=== PATIENT | female | born 1940 | race Caucasian/White ===

== ENCOUNTER 2020-10-16 14:36 | Observation (INO) ==
[2020-10-16] MEDS ORDERED: 0.9 % Sodium Chloride 500 ML IVC ONE ×2 (15:03→16:59)
[2020-10-16 15:22] LABS: Basophils % 0.2 %; Eosinophils % 0.2 %; Hematocrit 34.4 % (35.3-44.9); Hemoglobin 11.3 g/dL (11.5-15.4); Immature Granulocytes % 0.4 % (0-4); Lymphocytes # 0.9 K/mcL (0.6-4.6); Lymphocytes % 6.3 %; Mean Corpuscular HGB Conc 32.8 g/dL (31.6-35.5); Mean Corpuscular Hemoglobin 29.6 pg (28.0-33.3); Mean Corpuscular Volume 90.1 fL (83.0-100.0); Mean Platelet Volume 10.8 fL (9.4-12.4); Monocytes % 7.4 %; Neutrophils # 11.9 K/mcL (1.6-8.9); Platelet Count 273 K/mcL (140-400); Red Blood Count 3.82 M/mcL (3.82-4.97); Red Cell Distribution Width 15.9 % (11.5-14.5); Segmented Neutrophils % 85.5 %; White Blood Count 13.9 K/mcL (4.3-11.1)
[2020-10-16 15:28] LABS: INR 1.9; Prothrombin Time 21.7 Seconds (9.4-12.1)
[2020-10-16 15:36] LABS: Albumin 3.8 g/dL (3.5-5.7); Albumin/Globulin Ratio 1.2 (1.1-2.2); Bilirubin,Direct 0.2 mg/dL (0.0-0.2); Bilirubin,Indirect 0.7 mg/dL (0.0-1.0); Bilirubin,Total 0.9 mg/dL (0.3-1.0); Calcium 8.8 mg/dL (8.6-10.3); Globulin 3.3 g/dL (2.4-3.5); Potassium 4.2 mEq/L (3.5-5.1); Total Protein 7.1 g/dL (6.4-8.9)
[2020-10-16 15:54] LABS: Bilirubin,Urine Small (Negative); Blood,Urine Large (Negative); Clarity,Urine Turbid (Clear); Color,Urine Yellow (Yellow); Glucose,Urine (UA) Normal (Normal); Ketones,Urine Negative (Negative); Leukocyte Esterase,Urine Large (Negative); Nitrite,Urine Negative (Negative); PH,Urine 5.5 pH Units (5.0-8.0); Protein,Urine 100 mg/dL (Neg-Trace); Specific Gravity,Urine 1.025 (1.010-1.025); Urobilinogen,Urine Normal (Normal)
[2020-10-16] MEDS ORDERED: cefTRIAXone 2,000 MG in 0.9 % Sodium Chloride Mini Bag 100 ML IVPB ONE (16:00)
[2020-10-16 16:02] LABS: RBC,Urine 50-100 per hpf (0-3); WBC,Urine TNTC per hpf (0-3)
[2020-10-16] MEDS: 0.9 % Sodium Chloride 1,000 ML IVC SCH (16:11)
[2020-10-16] MEDS ORDERED: Melatonin 3 MG TABLET PO PRN (16:45)
[2020-10-16] MEDS ORDERED: Acetaminophen 325 MG TABLET PO PRN (16:45)
[2020-10-16] MEDS ORDERED: Naloxone 0.4 MG/ML INJ IVP PRN (16:45)
[2020-10-16] MEDS ORDERED: Ondansetron 4 MG/2 ML VIAL IVP PRN (16:45)
[2020-10-16] MEDS ORDERED: Dextrose Gel 15 GM/37.5 ML TUBE PO PRN ×2 (16:50)
[2020-10-16] MEDS ORDERED: D5% in Water 1,000 ML IVC PRN (16:50)
[2020-10-16] MEDS ORDERED: *HR* Dextrose 50 % in Water (Vial) 50 ML VIAL IVP PRN (16:50)
[2020-10-16] MEDS: Apixaban 5 MG TABLET PO SCH (21:10)
[2020-10-16] MEDS: Insulin LISPRO 300 UNITS/3 ML VIAL SUBQ SCH (21:11)
[2020-10-16] MEDS: Gabapentin 400 MG CAPSULE PO SCH (21:11)
[2020-10-17] MEDS ORDERED: 0.9 % Sodium Chloride 500 ML IV PRN (00:07)
[2020-10-17] MEDS: 0.9 % Sodium Chloride 1,000 ML IVC SCH ×4 (01:37→17:42)
[2020-10-17 07:02] LABS: Basophils % 0.4 %; Eosinophils # 0.1 K/mcL (0.0-0.6); Eosinophils % 0.9 %; Hematocrit 29.6 % (35.3-44.9); Hemoglobin 9.2 g/dL (11.5-15.4); Immature Granulocytes % 0.4 % (0-4); Lymphocytes # 0.7 K/mcL (0.6-4.6); Lymphocytes % 8.2 %; Mean Corpuscular HGB Conc 31.1 g/dL (31.6-35.5); Mean Corpuscular Hemoglobin 29.1 pg (28.0-33.3); Mean Corpuscular Volume 93.7 fL (83.0-100.0); Mean Platelet Volume 10.8 fL (9.4-12.4); Monocytes # 0.8 K/mcL (0.0-1.3); Monocytes % 9.7 %; Neutrophils # 6.9 K/mcL (1.6-8.9); Platelet Count 214 K/mcL (140-400); Red Blood Count 3.16 M/mcL (3.82-4.97); Red Cell Distribution Width 15.9 % (11.5-14.5); Segmented Neutrophils % 80.4 %; White Blood Count 8.5 K/mcL (4.3-11.1)
[2020-10-17 07:24] LABS: Calcium 7.4 mg/dL (8.6-10.3); Potassium 3.5 mEq/L (3.5-5.1)
[2020-10-17] MEDS: Insulin LISPRO 300 UNITS/3 ML VIAL SUBQ SCH ×4 (07:41→21:19)
[2020-10-17] MEDS: Apixaban 5 MG TABLET PO SCH ×2 (10:14→21:18)
[2020-10-17] MEDS: Gabapentin 400 MG CAPSULE PO SCH ×3 (10:19→21:18)
[2020-10-17] MEDS: cefTRIAXone 2,000 MG in Water for inj. (sterile) 20 ML IVP SCH (17:29)
[2020-10-18] MEDS: 0.9 % Sodium Chloride 1,000 ML IVC SCH ×3 (01:04→15:45)
[2020-10-18 07:02] LABS: Calcium 7.3 mg/dL (8.6-10.3); Potassium 3.8 mEq/L (3.5-5.1)
[2020-10-18 07:41] LABS: Hematocrit 33.7 % (35.3-44.9); Hemoglobin 9.9 g/dL (11.5-15.4); Mean Corpuscular HGB Conc 29.4 g/dL (31.6-35.5); Mean Corpuscular Hemoglobin 29.3 pg (28.0-33.3); Mean Platelet Volume 10.4 fL (9.4-12.4); Platelet Count 211 K/mcL (140-400); Red Blood Count 3.38 M/mcL (3.82-4.97); White Blood Count 7.1 K/mcL (4.3-11.1)
[2020-10-18 07:43] LABS: Mean Corpuscular Volume 97.9 fL (83.0-100.0)
[2020-10-18] MEDS: Insulin LISPRO 300 UNITS/3 ML VIAL SUBQ SCH ×4 (07:51→21:35)
[2020-10-18] MEDS: Gabapentin 400 MG CAPSULE PO SCH ×3 (08:28→21:34)
[2020-10-18] MEDS: Apixaban 5 MG TABLET PO SCH ×2 (08:28→21:35)
[2020-10-18] MEDS: cefTRIAXone 2,000 MG in Water for inj. (sterile) 20 ML IVP SCH (17:19)
[2020-10-19 07:42] LABS: Basophils % 0.3 %; Eosinophils # 0.2 K/mcL (0.0-0.6); Hemoglobin 9.4 g/dL (11.5-15.4); Immature Granulocytes % 0.5 % (0-4); Lymphocytes # 0.6 K/mcL (0.6-4.6); Mean Corpuscular HGB Conc 32.4 g/dL (31.6-35.5); Mean Corpuscular Hemoglobin 29.6 pg (28.0-33.3); Mean Corpuscular Volume 91.2 fL (83.0-100.0); Mean Platelet Volume 10.7 fL (9.4-12.4); Monocytes # 0.8 K/mcL (0.0-1.3); Monocytes % 9.5 %; Neutrophils # 6.3 K/mcL (1.6-8.9); Platelet Count 241 K/mcL (140-400); Red Blood Count 3.18 M/mcL (3.82-4.97); Red Cell Distribution Width 15.6 % (11.5-14.5); Segmented Neutrophils % 79.7 %; White Blood Count 7.9 K/mcL (4.3-11.1)
[2020-10-19 07:50] LABS: BUN/Creatinine Ratio 17 (6-26); Blood Urea Nitrogen 16 mg/dL (8-23); Calcium 7.9 mg/dL (8.6-10.3); Carbon Dioxide 22 mEq/L (23-29); Chloride 113 mEq/L (98-107); Glucose 170 mg/dL (70-105); Osmolality,Calculated 301 (280-300); Potassium 3.3 mEq/L (3.5-5.1); Sodium 143 mEq/L (136-145); eGFR For African Americans > 60 (> 60); eGFR For Non-African Americans 57 (> 60)
[2020-10-19] MEDS: Gabapentin 400 MG CAPSULE PO SCH ×3 (08:04→21:42)
[2020-10-19] MEDS: Apixaban 5 MG TABLET PO SCH ×2 (08:05→21:42)
[2020-10-19] MEDS: Insulin LISPRO 300 UNITS/3 ML VIAL SUBQ SCH ×4 (08:06→21:43)
[2020-10-19] MEDS: cefTRIAXone 2,000 MG in Water for inj. (sterile) 20 ML IVP SCH (18:58)
[2020-10-20] MEDS: Gabapentin 400 MG CAPSULE PO SCH ×2 (07:50→14:37)
[2020-10-20] MEDS: Apixaban 5 MG TABLET PO SCH (07:50)
[2020-10-20] MEDS: Insulin LISPRO 300 UNITS/3 ML VIAL SUBQ SCH ×3 (07:51→16:46)
[2020-10-20 08:20] LABS: Basophils % 0.2 %; Eosinophils # 0.4 K/mcL (0.0-0.6); Eosinophils % 4.8 %; Hematocrit 28.6 % (35.3-44.9); Hemoglobin 9.2 g/dL (11.5-15.4); Immature Granulocytes % 0.6 % (0-4); Lymphocytes # 0.5 K/mcL (0.6-4.6); Lymphocytes % 5.9 %; Mean Corpuscular HGB Conc 32.2 g/dL (31.6-35.5); Mean Corpuscular Hemoglobin 29.2 pg (28.0-33.3); Mean Corpuscular Volume 90.8 fL (83.0-100.0); Mean Platelet Volume 10.5 fL (9.4-12.4); Monocytes # 0.7 K/mcL (0.0-1.3); Monocytes % 8.4 %; Neutrophils # 6.7 K/mcL (1.6-8.9); Platelet Count 239 K/mcL (140-400); Red Blood Count 3.15 M/mcL (3.82-4.97); Red Cell Distribution Width 15.9 % (11.5-14.5); Segmented Neutrophils % 80.1 %; White Blood Count 8.4 K/mcL (4.3-11.1)
[2020-10-20 08:31] LABS: BUN/Creatinine Ratio 16 (6-26); Blood Urea Nitrogen 14 mg/dL (8-23); Carbon Dioxide 23 mEq/L (23-29); Chloride 112 mEq/L (98-107); Glucose 179 mg/dL (70-105); Osmolality,Calculated 301 (280-300); Potassium 3.8 mEq/L (3.5-5.1); Sodium 143 mEq/L (136-145); eGFR For African Americans > 60 (> 60); eGFR For Non-African Americans > 60 (> 60)
[2020-10-20] MEDS ORDERED: Cefdinir 300 MG CAPSULE PO ONE (16:59)
[2020-10-20 22:14] VITALS: BP 128/66; PULSE 70; RESP 20; TEMP 98.8; O2SAT 93
== END 2020-10-20 21:50 ==
LOC: INPPIK 14:36 → EMEROOPIK 14:36 → INPPIK 16:44
PROVIDERS: ADMIT Family Medicine; ATTEND Family Medicine